=== PATIENT | male | born 1995 | race Caucasian/White ===

== ENCOUNTER 2019-02-21 14:40 | Emergency (ER) | payer OTHER ==
[2019-02-21] MEDS ORDERED: Acetaminophen 500 MG TAB ONE (15:02)
--- NOTE | 2019-02-21 15:19 | RAD ---
EXAM: Chest PA and lateral: HISTORY: Cough. Congestion. COMPARISON: None FINDINGS: Heart: Normal cardiac silhouette Aorta: Unremarkable Pulmonary vessels: Normal Costophrenic angles: Costophrenic angles are clear. Lungs: No consolidation or masses. Pneumothorax: No pneumothorax Osseous structures: No osseous abnormalities IMPRESSION: No acute cardiopulmonary process.
== END 2019-02-21 16:41 | disposition home or self-care (01) ==
LOC: ERS 14:40
DX: J06.9 Acute upper respiratory infection, unspecified (principal); F17.210 Nicotine dependence, cigarettes, uncomplicated
CPT/HCPCS: 71046; 87081; 87430; 87804